=== PATIENT | male | born 1970 | race Caucasian/White ===

== ENCOUNTER 2024-02-18 09:04 | Outpatient (CLI) | payer OTHER, SELFPAY | END 2024-02-18 09:05 | disposition home or self-care (01) | PROVIDERS: PCP Family Medicine; Visit Provider Family Medicine | DX: I10 Essential (primary) hypertension (principal); Z13.6 Encounter for screening for cardiovascular disorders; Z12.5 Encounter for screening for malignant neoplasm of prostate | CPT/HCPCS: 80048; 80061; G0103 ==